=== PATIENT | female | born 1940 | race Caucasian/White ===

== ENCOUNTER 2017-10-08 09:45 | Emergency (ER) | payer MEDICARE, BC ==
[~2017-10-08] VITALS: Ht 160 cm; Wt 72.6 kg
[2017-10-08 09:46] VITALS: BP 136/64
--- NOTE | 2017-10-08 11:25 | NUR ---
REPORT TO [facility] MADE, COPY GIVEN TO [facility] TO MAIL TO [facility]
== END 2017-10-08 11:12 | disposition home or self-care (01) ==
LOC: ER 09:52
DX: S80.01XA Contusion of right knee, initial encounter (principal); M85.88 Other specified disorders of bone density and structure, other site; I10 Essential (primary) hypertension; E11.9 Type 2 diabetes mellitus without complications; Z86.73 Personal history of transient ischemic attack (TIA), and cerebral infarction without residual deficits; Z95.1 Presence of aortocoronary bypass graft; Z60.2 Problems related to living alone; V49.49XA Driver injured in collision with other motor vehicles in traffic accident, initial encounter; Y93.89 Activity, other specified; Y92.413 State road as the place of occurrence of the external cause; Y99.8 Other external cause status
CPT/HCPCS: 73564; 99284; A4606; Z7610

== ENCOUNTER 2017-10-17 09:36 | Emergency (ER) | payer MEDICARE, BC ==
[~2017-10-17] VITALS: Ht 162.6 cm; Wt 72.6 kg
[2017-10-17 09:46] VITALS: BP 151/72
--- NOTE | 2017-10-17 09:50 | NUR ---
PRESENTS TO ER C/O R KNEE PAIN S/P SLIP AND FALL THIS AM. DENIES TRAUMA. A/OX 4, BREATHING EVEN AND UNLABORED. NO SOB, NAD, VITALS STABLE. SAFETY AND COMFORT MEASURES IN PLACE. AWAITING MD ORDERS.
[2017-10-17] MEDS ORDERED: IBUPROFEN 400 MG TABLET ONE (10:00)
[2017-10-17] MEDS ORDERED: IBUPROFEN 400 MG TABLET PO ONE (10:00)
--- NOTE | 2017-10-17 10:02 | NUR ---
AUTOMOBILE DAMAGE APPRAISER AT BEDSIDE.
--- NOTE | 2017-10-17 11:05 | NUR ---
Patient discharged to home in stable condition. Written and verbal after care instructions given. Patient verbalizes understanding of instruction.
== END 2017-10-17 10:31 | disposition home or self-care (01) ==
LOC: ER 09:37
DX: S80.01XA Contusion of right knee, initial encounter (principal); I10 Essential (primary) hypertension; E11.9 Type 2 diabetes mellitus without complications; Z95.1 Presence of aortocoronary bypass graft; Z60.2 Problems related to living alone; Z86.73 Personal history of transient ischemic attack (TIA), and cerebral infarction without residual deficits; W01.0XXA Fall on same level from slipping, tripping and stumbling without subsequent striking against object, initial encounter; Y93.89 Activity, other specified; Y92.89 Other specified places as the place of occurrence of the external cause; Y99.8 Other external cause status
CPT/HCPCS: 29505; 73564; 73590; 99284; A4606; Z7610

== ENCOUNTER 2018-02-08 10:55 | Emergency (ER) | payer MEDICARE, BC ==
[~2018-02-08] VITALS: Ht 162.6 cm; Wt 70.4 kg
[2018-02-08] MEDS ORDERED: ACETAMINOPHEN ES 500 MG TABLET PO ONE (11:30)
[2018-02-08] MEDS ORDERED: ACETAMINOPHEN ES 500 MG TABLET ONE (11:50)
--- NOTE | 2018-02-08 11:50 | NUR ---
PT BIB A BLS. S/P SLIP FALL, "SAT ON WALKER AND SLIPPED TO THE FLOOR AT BEST BUY". AOX4, NO SOB NOTED. WILL CONTINUE TO MONTIOR.
--- NOTE | 2018-02-08 12:10 | NUR ---
URINE SAMPLE COLLECTED BY LAB.
[2018-02-08 12:17] LABS: APPEARANCE,URINE Cloudy (CLEAR); BILIRUBIN,URINE Negative (NEGATIVE); BLOOD, URINE Moderate Ery/uL (NEGATIVE); COLOR,URINE Yellow (YELLOW); KETONES,URINE Negative (NEGATIVE); LEUKOCYTE ESTERASE ,URINE Large (NEGATIVE); NITRITE, URINE Negative (NEGATIVE); PH,URINE 6.5 (5.0-8.0); PROTEIN,URINE 30 mg/dl (NEGATIVE); UGLUCOSE Negative (NEGATIVE)
[2018-02-08 12:28] LABS: BACTERIA,URINE Few /HPF (None Seen); SQUAMOUS EPITHELIAL CELL,UR Few /HPF (None Seen); WBC,URINE 80-100 /HPF (0-3)
--- NOTE | 2018-02-08 12:35 | NUR ---
ANDREW, EMT, AT BEDSIDE FOR ULNAR GUTTER SPLINT
--- NOTE | 2018-02-08 12:45 | NUR ---
Patient discharged to home in stable condition WITH CAREGIVER. Written and verbal after care instructions given. Patient verbalizes understanding of instruction.
[2018-02-08 12:46] VITALS: BP 122/57
[2018-02-08] MEDS ORDERED: CEPHALEXIN MONOHYDRATE 500 MG CAPSULE PO ONE ×2 (12:49→13:00)
== END 2018-02-08 13:10 | disposition home or self-care (01) ==
LOC: ER 11:00
DX: S62.337A Displaced fracture of neck of fifth metacarpal bone, left hand, initial encounter for closed fracture (principal); N39.0 Urinary tract infection, site not specified; I10 Essential (primary) hypertension; E11.9 Type 2 diabetes mellitus without complications; Z95.1 Presence of aortocoronary bypass graft; Z86.73 Personal history of transient ischemic attack (TIA), and cerebral infarction without residual deficits; Z60.2 Problems related to living alone; W01.0XXA Fall on same level from slipping, tripping and stumbling without subsequent striking against object, initial encounter; Y93.89 Activity, other specified; Y92.89 Other specified places as the place of occurrence of the external cause; Y99.8 Other external cause status
CPT/HCPCS: 73110; 73130-TC; 81000-TC; A4606; Z7610

== ENCOUNTER 2022-08-28 21:21 | Inpatient (IN) | payer MEDICARE, BC ==
[~2022-08-28] VITALS: Ht 160 cm; Wt 79.4 kg
--- NOTE | 2022-08-28 21:39 | NUR ---
JOSE ALFREDO 80 FROM HOME FOR C/O WEAKNESS, HIGH BS,AND FEVER. PT A/OX2/3. TOLERATING O2 6LPM AT 96%. . CONNECTED PT TO POX AND MONITOR. SAFETY MEASURES IN PLACE.
--- NOTE | 2022-08-28 22:00 | NUR ---
LAC #18G S/L BLOOD COLLECTED AND SENT TO LAB
[2022-08-28] MEDS ORDERED: ACETAMINOPHEN 325 MG TABLET PO ONE (22:30)
[2022-08-28] MEDS ORDERED: ACETAMINOPHEN 325 MG TABLET ONE ×2 (22:32→22:37)
[2022-08-28] MEDS ORDERED: VANCOMYCIN 1 GM /D5W 250 ML PB IV ONE (22:37)
[2022-08-28] MEDS ORDERED: PIPERACI/TAZO 3.375GM/D5W 50ML PB IV ONE (22:37)
--- NOTE | 2022-08-28 22:40 | NUR ---
PT NOT ABLE TO COLLECTED URINE SAMPLE; WILL TRY AGAIN LATER
[2022-08-28 22:46] LABS: BASOPHILS % (AUTO) 0.2 % (0.0-2.0); EOSINOPHILS % (AUTO) 1.9 % (0.0-6.0); HEMATOCRIT 35 % (33-45); HEMOGLOBIN 11.4 g/dL (11.5-14.8); LYMPHOCYTES # (AUTO) 0.2 K/uL (0.8-4.8); LYMPHOCYTES % (AUTO) 2.5 % (20.0-44.0); MEAN CORPUSCULAR HGB CONC 32 g/dl (31.0-36.0); MEAN CORPUSCULAR VOLUME 90 fL (82-100); MONOCYTES # (AUTO) 0.4 K/uL (0.1-1.30); NEUTROPHILS # (AUTO) 8.8 K/uL (1.8-8.9); NEUTROPHILS % (AUTO) 91.4 % (43.0-81.0); PLATELET COUNT (AUTO) 236 K/uL (150-450); RED BLOOD CELL COUNT(AUTO) 3.91 MIL/uL (4.0-5.2); WHITE BLOOD COUNT (AUTO) 9.6 K/uL (4.3-11.0)
--- NOTE | 2022-08-28 22:55 | NUR ---
BLOOD DRAWN FOR VBG
[2022-08-28 22:57] LABS: SITE, VBG Other; VBG COHb 0.9 %; VBG MetHb 0.3 %; VBG O2Hb 33.9 %
[2022-08-28] MEDS ORDERED: IV NS 0.9% 1,000 ML IV PRN (23:00)
[2022-08-28] MEDS ORDERED: VANCOMYCIN 1 GM in IV D5W 250 ML IV ONE (23:00)
[2022-08-28] MEDS ORDERED: PIPERACILLIN /TAZOBACTAM 3.375 G in IV D5W 50 ML IV ONE (23:00)
--- NOTE | 2022-08-28 23:01 | NUR ---
PT TAKEN TO CT VIA JOSE
[2022-08-28 23:13] LABS: CALCIUM, SERUM 10.1 mg/dL (8.5-10.1); CARBON DIOXIDE 27 mmol/L (21-32); CHLORIDE 95 mmol/L (98-107); CREATININE 1.4 mg/dL (0.6-1.3); POTASSIUM 4.6 mmol/L (3.5-5.1); SODIUM SERUM 132 mmol/L (136-145); UREA NITROGEN, BLOOD 24 mg/dL (7-18)
[2022-08-28 23:17] LABS: GLUCOSE 371 mg/dL (74-106)
[2022-08-28 23:19] LABS: ALANINE AMINOTRANSFERASE 25 U/L (12-78); ALBUMIN 3.8 g/dL (3.4-5.0); ALKALINE PHOSPHATASE 89 U/L (46-116); ASPARTATE AMINOTRANSFERASE 25 U/L (15-37); BILIRUBIN,DIRECT 0.2 mg/dL (0.0-0.2); BILIRUBIN,TOTAL 1.2 mg/dL (0.2-1.0)
--- NOTE | 2022-08-28 23:23 | NUR ---
COVID ANTIGEN SWAB COLLECTED AND SENT TO LAB
--- NOTE | 2022-08-29 00:01 | NUR ---
URINE COLLECTED AND SENT TO LAB
[2022-08-29 00:17] LABS: BILIRUBIN,URINE NEGATIVE (NEGATIVE); COLOR,URINE YELLOW (YELLOW); LEUKOCYTE ESTERASE ,URINE TRACE (NEGATIVE); NITRITE, URINE NEGATIVE (NEGATIVE); PH,URINE 6.5 (5.0-8.0); PROTEIN,URINE 2+ mg/dl (NEGATIVE); UGLUCOSE 3+ mg/dL (NEGATIVE); UROBILINOGEN,URINE 0.2 EU/dL (0.2)
[2022-08-29 00:39] LABS: BACTERIA,URINE Rare /HPF (None Seen); SQUAMOUS EPITHELIAL CELL,UR Few /HPF (None Seen); WBC,URINE 0-2 /HPF (0-3)
[2022-08-29] MEDS ORDERED: DEXTROSE 50%-WATER 50 ML DISP.SYRIN IV PRN (02:30)
[2022-08-29] MEDS ORDERED: MAGNESIUM HYDROXIDE 30 ML UDC PO PRN (02:30)
[2022-08-29] MEDS ORDERED: Z GUARD REMEDY 4 OZ OINT TP PRN (02:30)
[2022-08-29] MEDS ORDERED: MAG HYDROX/AL HYDROX/SIMETH 30 ML UDC PO PRN (02:30)
[2022-08-29] MEDS ORDERED: ONDANSETRON HCL/PF 4 MG/2 ML VIAL IVP PRN (02:30)
[2022-08-29] MEDS ORDERED: ZOLPIDEM TARTRATE 5 MG TABLET PO PRN (02:30)
[2022-08-29] MEDS ORDERED: IV NS 0.9% 1,000 ML IV PRN (02:30)
[2022-08-29] MEDS ORDERED: ACETAMINOPHEN 325 MG TABLET PO PRN (02:30)
--- NOTE | 2022-08-29 02:52 | NUR ---
3W 314-1
--- NOTE | 2022-08-29 03:09 | NUR ---
REPORT GIVEN TO CHRISTIANO Phillip RN FOR ALICIA
--- NOTE | 2022-08-29 03:30 | NUR ---
GANG PUNCH OPERATORSUPERVISOR URANIUM PROCESSING NOTES RECEIVED PATIENT FROM ER AT 0330. PATIENT IS A/O TIMES 4. ABLE TO MAKE NEEDS KNOWN. NO PAIN NOTED. NO SOB NOTED. NO DISTRESS NOTED. ABLE TO AMBULATE FROM GURNEY TO THE BED. ON TELE MONITOR READING SR 85. ALL THE BELONGINGS ACCOUNTED AND SIGNED FOR. OVERALL SKIN INTACT. IV ACCESS ON THE RAC G # 18 INTACT AND RUNNING NS AT 75 ML/HR.EDUCATE PATIENT FOR CALL LIGHT USE. VERBALIZED UNDERSTANDING. ALL SAFETY MEASURES IN PLACE. BED LOCKED IN THE LOWEST POSITION. CALL LIGHT AND TABLE IN EASY REACH. SIDE RAILS UP TIMES 2. WILL CONTINUE TO MONITOR CLOSELY.
--- NOTE | 2022-08-29 03:35 | NUR ---
PT TRANSFERRED TO 314-1 VIA ACLS PROTOCOL. VSS. ALL BELONGINGS WITH PT.
[2022-08-29 04:00] VITALS: BP 112/60
[2022-08-29] MEDS: *INSULIN REGULAR(HUMULIN R)HUM 100 UNIT/ML VIAL SQ PRN ×2 (05:59→22:44)
[2022-08-29] MEDS: BLOOD SUGAR DIAGNOSTIC 1 EACH STRIP VI SCH ×4 (06:37→22:43)
--- NOTE | 2022-08-29 06:42 | NUR ---
PARTS COUNTER ASSOCIATE CLOSING NOTES PATIENT IS A/O TIMES 4. ABLE TO MAKE NEEDS KNOWN. NO PAIN NOTED. NO SOB NOTED. NO DISTRESS NOTED. ABLE TO AMBULATE. ON TELE MONITOR READING SR 80. OVERALL SKIN INTACT. IV ACCESS ON THE RAC G # 18 INTACT AND RUNNING NS AT 75 ML/HR.EDUCATE PATIENT FOR CALL LIGHT USE. VERBALIZED UNDERSTANDING. ALL SAFETY MEASURES IN PLACE. BED LOCKED IN THE LOWEST POSITION. CALL LIGHT AND TABLE IN EASY REACH. SIDE RAILS UP TIMES 2. WILL ENDORSE FOR ALICIA.
[2022-08-29 08:00] VITALS: BP 116/59
[2022-08-29] MEDS: PANTOPRAZOLE 40 MG TABLET.DR PO SCH (08:41)
[2022-08-29] MEDS: ENOXAPARIN SODIUM 30 MG/0.3 ML DISP.SYRIN SQ SCH (08:42)
[2022-08-29 08:53] LABS: ALANINE AMINOTRANSFERASE 30 U/L (12-78); ALBUMIN 3.1 g/dL (3.4-5.0); ALKALINE PHOSPHATASE 76 U/L (46-116); ASPARTATE AMINOTRANSFERASE 33 U/L (15-37); CALCIUM, SERUM 9.3 mg/dL (8.5-10.1); CARBON DIOXIDE 28 mmol/L (21-32); CHLORIDE 105 mmol/L (98-107); CREATININE 1.2 mg/dL (0.6-1.3); GLUCOSE 147 mg/dL (74-106); POTASSIUM 3.6 mmol/L (3.5-5.1); SODIUM SERUM 140 mmol/L (136-145); UREA NITROGEN, BLOOD 18 mg/dL (7-18)
[2022-08-29] MEDS ORDERED: ERGO500093 PO (10:22)
[2022-08-29] MEDS ORDERED: INSU100V11 SQ (10:22)
[2022-08-29] MEDS ORDERED: IRBE300T19 PO (10:22)
[2022-08-29] MEDS ORDERED: CALC1TAB30 PO (10:22)
[2022-08-29] MEDS ORDERED: EMPA1TAB3 PO (10:22)
[2022-08-29] MEDS ORDERED: INSU100V7 SQ (10:22)
[2022-08-29] MEDS ORDERED: URSO300C12 PO (10:22)
[2022-08-29] MEDS ORDERED: GABA300C PO (10:22)
[2022-08-29] MEDS ORDERED: BUPR-54 PO (10:22)
[2022-08-29] MEDS ORDERED: BENZ-13 PO (10:22)
[2022-08-29] MEDS ORDERED: EZET10TA32 PO (10:22)
[2022-08-29] MEDS ORDERED: DULO60CA64 PO (10:22)
[2022-08-29] MEDS ORDERED: ASPI-1420 PO (10:22)
[2022-08-29] MEDS ORDERED: FENO54TA PO (10:22)
[2022-08-29] MEDS ORDERED: ALBU2.5V38 IH (10:22)
[2022-08-29] MEDS ORDERED: FLUT200B INH (10:22)
[2022-08-29] MEDS ORDERED: ALEN10TA26 PO (10:22)
[2022-08-29] MEDS ORDERED: ALBU18HF2 IH (10:22)
[2022-08-29] MEDS ORDERED: ROSU20TA32 PO (10:22)
[2022-08-29] MEDS ORDERED: INSU200I4 SQ (10:22)
[2022-08-29] MEDS ORDERED: SULF1TAB48 PO (10:23)
[2022-08-29] MEDS: ZOSYN IVPB 2.25 G in IV D5W 50ml IV SCH ×2 (12:20→18:13)
[2022-08-29] MEDS: INSULIN REGULAR, HUMAN 100 UNIT/ML 3 ML VIAL SQ PRN (13:43)
--- NOTE | 2022-08-29 14:05 | NUR ---
MEASUREMENT SUPERVISOR OPENING NOTES RECEIVED PATIENT IS A/O TIMES 4. ABLE TO MAKE NEEDS KNOWN. NO C/O OF PAIN AND DISCOMFORT . NO SOB OR DISTRESS NOTED. ABLE TO AMBULATE. ON TELE MONITOR READING SR 80. . IV ACCESS ON THE RAC G # 18 INTACT AND RUNNING NS AT 75 ML/HR. CALL LIGHT WIHIN REACH . VERBALIZED UNDERSTANDING. ALL SAFETY MEASURES IN PLACE. BED LOCKED IN THE LOWEST POSITION. CALL LIGHT AND TABLE IN EASY REACH. SIDE RAILS UP TIMES 2. WILL CONTINUE TO MONITOR
[2022-08-29 16:00] VITALS: BP 116/52
--- NOTE | 2022-08-29 18:53 | NUR ---
AIRCRAFT LIFE SUPPORT FITTER CLOSING NOTES PATIENT IS A/O TIMES 4. ABLE TO MAKE NEEDS KNOWN. NO C/O OF PAIN AND DISCOMFORT . NO SOB OR DISTRESS NOTED. ABLE TO AMBULATE. ON TELE MONITOR READING SR 88. . IV ACCESS ON THE RAC G # 18 INTACT AND RUNNING NS AT 75 ML/HR. CALL LIGHT WIHIN REACH . VERBALIZED UNDERSTANDING. ALL DUE MEDS ORDERED GIVEN , ALL SAFETY MEASURES IN PLACE. BED LOCKED IN THE LOWEST POSITION. CALL LIGHT AND TABLE IN EASY REACH. SIDE RAILS UP TIMES 2. WILL ENDORSED TO NEXT SHIFT .
--- NOTE | 2022-08-29 19:29 | NUR ---
noc rn opening received patient in bed, a/ox4, no s/s of apparent distress in room air. denies any pain nor discomfort. patient has RAC #18g zosyn still running at this time. reading sr on the tele monitor with 85bpm. Safety in place-- bed in lowest, locked position, call light within reach, bed alarm in place. Patient's needs attended at this time. will continue with patient's plan of care.
[2022-08-29 20:00] VITALS: BP 132/60
[2022-08-29] MEDS ORDERED: VANCOMYCIN 1 GM in IV D5W 250ml IV SCH (23:00)
[2022-08-30] VITALS: BP 141/57
[2022-08-30] MEDS: ZOSYN IVPB 2.25 G in IV D5W 50ml IV SCH ×3 (00:05→12:01)
--- NOTE | 2022-08-30 04:00 | NUR ---
noc rn note patient refused 0400 V/S. Will check when patient permits.
[2022-08-30 06:03] LABS: BASOPHILS % (AUTO) 0.5 % (0.0-2.0); EOSINOPHILS % (AUTO) 5.7 % (0.0-6.0); HEMATOCRIT 32 % (33-45); HEMOGLOBIN 10.7 g/dL (11.5-14.8); LYMPHOCYTES # (AUTO) 0.7 K/uL (0.8-4.8); LYMPHOCYTES % (AUTO) 10.8 % (20.0-44.0); MEAN CORPUSCULAR HGB CONC 34 g/dl (31.0-36.0); MEAN CORPUSCULAR VOLUME 89 fL (82-100); MONOCYTES # (AUTO) 0.6 K/uL (0.1-1.30); NEUTROPHILS # (AUTO) 4.6 K/uL (1.8-8.9); PLATELET COUNT (AUTO) 224 K/uL (150-450); RED BLOOD CELL COUNT(AUTO) 3.61 MIL/uL (4.0-5.2); WHITE BLOOD COUNT (AUTO) 6.2 K/uL (4.3-11.0)
[2022-08-30 06:19] LABS: CALCIUM, SERUM 9.6 mg/dL (8.5-10.1); CARBON DIOXIDE 27 mmol/L (21-32); CHLORIDE 106 mmol/L (98-107); CREATININE 1.3 mg/dL (0.6-1.3); GLUCOSE 266 mg/dL (74-106); MAGNESIUM 2.2 mg/dL (1.8-2.4); PHOSPHORUS 2.7 mg/dL (2.5-4.9); POTASSIUM 4.2 mmol/L (3.5-5.1); SODIUM SERUM 141 mmol/L (136-145); UREA NITROGEN, BLOOD 17 mg/dL (7-18)
[2022-08-30] MEDS: INSULIN REGULAR, HUMAN 100 UNIT/ML 3 ML VIAL SQ PRN ×2 (06:37→12:04)
--- NOTE | 2022-08-30 07:26 | NUR ---
noc rn closing note Patient in bed with eyes closed, easy to arouse. no s/s of apparent distress on room air. denies pain. IV NS running @75mls/hr. all needs attended. scheduled medications administered. Sinus rhythm throughout shift. call light within reach. endorsed to han Dutton for continuity of patient care.
--- NOTE | 2022-08-30 07:30 | NUR ---
NIP WRAPPER NOTES PT IN BED, AWAKE, ALERT AND ORIENTED, NO COMPLAINT OF PAIN OR ANY DISCOMFORT AT THIS TIME, IV FLUIDS INFUSING WELL, CALL LIGHT WITHIN REACH, KEPT COMFORTABLE.
[2022-08-30 08:00] VITALS: BP 141/70
[2022-08-30] MEDS: BLOOD SUGAR DIAGNOSTIC 1 EACH STRIP VI SCH ×2 (08:47→12:04)
[2022-08-30] MEDS: PANTOPRAZOLE 40 MG TABLET.DR PO SCH (08:47)
[2022-08-30] MEDS: ENOXAPARIN SODIUM 30 MG/0.3 ML DISP.SYRIN SQ SCH (08:50)
[2022-08-30] MEDS ORDERED: ALBUTEROL FS 2.5 MG/3 ML VIAL.NEB IH PRN (12:30)
[2022-08-30] MEDS ORDERED: BENZONATATE 100 MG CAPSULE PO PRN (12:30)
[2022-08-30] MEDS ORDERED: ALBUTEROL FS 2.5 MG/0.5 ML VIAL.NEB IH PRN (13:00)
[2022-08-30] MEDS ORDERED: NITR-84 PO (15:59)
[2022-08-30 16:00] VITALS: BP 110/49
[2022-08-30] MEDS ORDERED: GABAPENTIN 300 MG CAPSULE PO SCH (17:00)
[2022-08-30] MEDS ORDERED: URSODIOL 300 MG CAPSULE PO SCH (17:00)
--- NOTE | 2022-08-30 17:04 | NUR ---
BIOCHEMIST NOTES PT IN BED, AWAKE, ALERT AND ORIENTED, NO COMPLAINT OF PAIN OR ANY DISCOMFORT, RESPIRATIONS NORMAL, VITALS WNL, STATED SHE IS FEELING BETTER TODAY, SEEN BY DR. WAKEFIELD THIS MORNING, ORDERED DISCHARGE, DISCHARGE AND MEDICATION INSTRUCTIONS PROVIDED TO PT, VERBALIZED UNDERSTANDING, PT TO CONTINUE PO ATB, SENT ELECTRONICALLY TO PT'S PREFERRED PHARMACY ON FILE, BELONGINGS ACCOUNTED FOR, PT AMBULATES WITH STEADY GAIT, TELE BOX GIVEN TO FILM SORTER, PICKED UP BY HER FRIEND JAYLENE, REFUSED WHEELCHAIR GOING DOWN THE LOBBY, LEFT WITH FRIEND IN STABLE CONDITION.
[2022-08-30] MEDS ORDERED: BUDESONIDE RESPULE INH 0.25 MG/2 ML AMPUL.NEB IH SCH (19:30)
[2022-08-30] MEDS ORDERED: ATORVASTATIN 40 MG TABLET PO SCH (22:00)
[2022-08-30] MEDS ORDERED: INSULIN GLARGINE, 100 UNIT/ML CARTRIDGE SQ SCH (22:00)
[2022-08-31] MEDS ORDERED: ALENDRONATE 10 MG TABLET PO SCH (07:30)
[2022-08-31] MEDS ORDERED: DULOXETINE HCL 30 MG CAPSULE.DR PO SCH (09:00)
[2022-08-31] MEDS ORDERED: BUPROPION XL 150 MG TAB.ER.24 PO SCH (09:00)
[2022-08-31] MEDS ORDERED: ERGOCALCIFEROL (VITAMIN D 2) 50,000 UNIT CAPSULE PO SCH (09:00)
[2022-08-31] MEDS ORDERED: LOSARTAN POTASSIUM 50 MG TABLET PO SCH (09:00)
[2022-08-31] MEDS ORDERED: EZETIMIBE 10 MG TABLET PO SCH (09:00)
[2022-08-31] MEDS ORDERED: ASPIRIN EC 81 MG TABLET.DR PO SCH (09:00)
== END 2022-08-30 16:56 | disposition home or self-care (01) | DRG 682 ==
LOC: ER 21:22 → TELE 08-29 02:54
PROVIDERS: ADMIT Internal Medicine; ATTEND Internal Medicine
DX: N17.0 Acute kidney failure with tubular necrosis (principal); E43 Unspecified severe protein-calorie malnutrition; G93.41 Metabolic encephalopathy; N39.0 Urinary tract infection, site not specified; E87.20 Acidosis, unspecified; E87.1 Hypo-osmolality and hyponatremia; I10 Essential (primary) hypertension; Z86.73 Personal history of transient ischemic attack (TIA), and cerebral infarction without residual deficits; Z95.1 Presence of aortocoronary bypass graft; Z20.822 Contact with and (suspected) exposure to COVID-19; I25.10 Atherosclerotic heart disease of native coronary artery without angina pectoris; Z79.899 Other long term (current) drug therapy; Z79.4 Long term (current) use of insulin; Z79.82 Long term (current) use of aspirin; Z79.83 Long term (current) use of bisphosphonates; Z79.51 Long term (current) use of inhaled steroids; D63.8 Anemia in other chronic diseases classified elsewhere; E88.09 Other disorders of plasma-protein metabolism, not elsewhere classified; E86.1 Hypovolemia; E11.65 Type 2 diabetes mellitus with hyperglycemia
CPT/HCPCS: 36415; 70450-TC; 71045-TC; 80048-TC; 80053-TC; 80076-TC; 81001; 82803-TC; 82962-TC; 83605-TC; 83735-TC; 84100-TC; 84484-TC; 85025-TC; 85730-TC; 87040-TC; 87081-TC; 87086-TC; A4223; C9803; G0378; J1650; J1815; J2543; J3370; J7030; J7060